=== PATIENT | male | born 1975 | race Caucasian/White ===

== ENCOUNTER 2017-10-08 09:00 | Observation (INO) | payer BC ==
[2017-10-08 09:15] LABS: Urine Appearance CLEAR; Urine Bilirubin NEGATIVE (NEG); Urine Blood NEGATIVE (NEG); Urine Color YELLOW; Urine Glucose NEGATIVE (NEG); Urine Protein NEGATIVE (NEG); Urine Specific Gravity 1.015 (1.005-1.030); Urine Urobilinogen 0.2 mg/dL (0.2-1.0)
[2017-10-08 09:18] LABS: Absolute Monocytes 0.4 K/uL (0.1-1.3); Absolute Neutrophil 3.7 K/uL (1.8-8.0); Basophils % 0.8 % (0-1.3); Eosinophils % 2.9 % (0-4.4); Hematocrit 49.9 % (39.6-49.0); Lymphocytes % 19.4 % (15.3-44.8); MCH 30.7 pg (27.0-35.0); MCV 91.3 fL (80-100); MPV 8.7 fL (7.6-11.3); RBC Red Blood Cell Count 5.46 M/uL (4.33-5.43)
[2017-10-08 09:23] LABS: Protime INR 0.92
[2017-10-08 09:30] LABS: Bicarbonate 30 mEq/L (21-31); Glucose Level 102 mg/dL (65-120); Potassium 4.3 mEq/L (3.6-5.0); Sodium Level 140 mEq/L (135-145)
[2017-10-08 09:31] LABS: BUN Blood Urea Nitrogen 11 mg/dL (6-20)
[2017-10-08 09:32] LABS: Urine Microscopic Reflex NO UMIC
[2017-10-08] MEDS ORDERED: GENTAMICIN 80 MG/100 ML BAG 80 MG/100 ML BAG IV ONE (09:45)
[2017-10-08] MEDS ORDERED: Ringers Lactate 1,000 ML IV ONE (09:45)
[2017-10-08] MEDS ORDERED: NA CIT/CITRIC AC 30 ML ORAL UDC ONE (10:14)
[2017-10-08] MEDS ORDERED: MIDAZOLAM HCL 2 MG/2 ML INJ ONE (10:32)
[2017-10-08] MEDS ORDERED: LIDOCAINE 2% MPF 5 ML VIAL ONE (10:32)
[2017-10-08] MEDS ORDERED: FENTANYL CITR 100 MCG/2 ML ONE (10:32)
[2017-10-08] MEDS ORDERED: ONDANSETRON 4 MG/2 ML VIAL ONE ×4 (10:32→15:56)
[2017-10-08] MEDS ORDERED: PROPOFOL 200 MG/20 ML VIAL IV ONE (10:32)
--- NOTE | 2017-10-08 11:00 | RAD REPORT ---
EXAM DESCRIPTION: RAD - Abdomen 1 View (KUB) - 10/08/2017 10:53 am CLINICAL HISTORY: Preop examination, nephrolithiasis COMPARISON: KUB September 16 FINDINGS: Bilateral upper pole renal calculi show no change in size, number or morphology. There is a punctate calcification over the lower pole right kidney is also unchanged. No obstruction, free air or pneumatosis. Bowel gas pattern is nonspecific. No significant bony findings IMPRESSION: Bilateral nephrolithiasis pattern as detailed. No clear change from the September 16 stud y.
[2017-10-08] MEDS: MEPERIDINE HCL 50 MG/ML AMP ONE ×4 (12:27→12:48)
[2017-10-08] MEDS ORDERED: MEPERIDINE HCL 50 MG/ML AMP ONE (13:02)
--- NOTE | 2017-10-08 14:05 | EKG ---
Test Date: 2017-10-08 Test Time: 08:53:40 Physicist Astrophysics: TELLO MEASUREMENT RESULTS: Intervals: Rate: 72 ID: [id number] QRSD: 80 QT: 388 QTc: 424 [place]: P: 27 ID: [id number] QRS: -14 T: -13 INTERPRETIVE STATEMENTS: Normal sinus rhythm Moderate voltage criteria for LVH, may be normal variant Borderline ECG No previous ECG available for comparison Electronically Signed On 10-08-17 14:03:52 CDT by Aden Calvo
[2017-10-08] MEDS ORDERED: TRAMADOL HCL 50 MG TAB ONE (14:28)
[2017-10-08] MEDS ORDERED: KETOROLAC 30 MG/ML INJ ONE (15:14)
[2017-10-08] MEDS ORDERED: MORPHINE 5 MG/ML VIAL IV ONE (15:39)
[2017-10-08] MEDS ORDERED: ONDANSETRON 4 MG/2 ML VIAL IV ONE (15:39)
[2017-10-08] MEDS ORDERED: MORPHINE 10 MG/ML VIAL ONE ×2 (15:55→17:05)
[2017-10-08] MEDS ORDERED: MORPHINE 10 MG/ML VIAL IV ONE (16:00)
--- NOTE | 2017-10-08 17:48 | P.HP ---
Certification for Inpatient Patient admitted to: Observation With expected LOS: <2 Midnights Patient will require the following post-hospital care: None Practitioner: I am a practitioner with admitting privileges, knowledge of patient current condition, hospital course, and medical plan of care. Services: Services provided to patient in accordance with Admission requirements found in Title 42 Section 412.3 of the Code of Federal Regulations Patient History Date of Service: 10/08/17 Primary Care Provider: None; Urology-Dr. Hernández Reason for admission: Intractable pain status post lithotripsy History of Present Illness: 42-year-old male direct admitted due to intractable pain after lithotripsy. Patient has a history of nephrolithiasis. Patient had evaluation as an outpatient by urology. Urology recommended lithotripsy. Lithotripsy was done today. Post procedure the patient had increasing pain. The patient required multiple doses of pain medication including morphine, tramadol. Pain persisted. I was asked to evaluate the patient for observation. Patient reports a history of nephrolithiasis. He has not had any procedures in the past for this. Patient reports a history of GERD. Patient denies history of chronic pain. He has multiple allergies including hydrocodone , Tylenol. When I evaluated the patient in recovery, patient reported pain to the left flank. Patient had some mild nausea. Patient did not appear in any significant respiratory distress. Allergies hydrocodone Allergy (Verified 10/08/17 08:38) Nausea/Vomiting acetaminophen Adverse Reaction (Verified 10/08/17 09:05) unknown amoxicillin Adverse Reaction (Verified 10/08/17 09:05) hallucinations,psychosis caffeine Adverse Reaction (Verified 10/08/17 09:05) migraine erythromycin base Adverse Reaction (Verified 10/08/17 09:05) hallucination, psychosis Home medications list reviewed: Yes Home Medications: Ibuprofen 1,000 mg PO PRN PRN 10/08/17 - Past Medical/Surgical History Diabetic: No -: Nephrolithiasis -: GERD Past Surgical History: Reviewed- Non-Contributory Psychosocial/ Personal History: The patient lives at home - Family History Family History: Reviewed- Non-Contributory - Social History Smoking Status: Never smoker Alcohol use: No CD- Drugs: No Caffeine use: No Place of Residence: Home Review of Systems General: As per HPI Eyes: Unremarkable ENT: Unremarkable Respiratory: Unremarkable Cardiovascular: Unremarkable Gastrointestinal: Nausea, Abdominal Pain, As per HPI Genitourinary: Unremarkable Musculoskeletal: As per HPI Integumentary: Unremarkable Neurological: Unremarkable Lymphatics: Unremarkable Physical Examination - Vital Signs Temperature: 97.6 F Blood Pressure: 95/55 Pulse: 69 Respirations: 16 - Physical Exam General: Alert, In no apparent distress, Oriented x3, Cooperative HEENT: Atraumatic, Normocephalic, PERRLA, Mucous membr. moist/pink Neck: Supple, No Thyromegaly Respiratory: Clear to auscultation bilaterally, Normal air movement Cardiovascular: Normal pulses, Regular rate/rhythm Gastrointestinal: Normal bowel sounds, Soft and benign, Non-distended, Tenderness (Patient tenderness to the left flank) Musculoskeletal: No erythema, No tenderness, No warmth Integumentary: No erythema, No warmth, No cyanosis Neurological: Normal speech, Normal strength at 5/5 x4 extr, Normal tone, Normal affect Lymphatics: No axilla or inguinal lymphadenopathy - Studies Laboratory Data (last 24 hrs) 10/08/17 08:40: Sodium 140, Potassium 4.3, BUN 11, Creatinine 0.83, Glucose 102 10/08/17 08:40: PT 10.9, INR 0.92, APTT 26.7 10/08/17 08:40: WBC 5.3, Hgb 16.8, Hct 49.9 H, Plt Count 254 Assessment and Plan - Problems (Diagnosis) (1) Intractable pain Current Visit: Yes Status: Acute Plan: Patient with intractable left flank pain after lithotripsy. Patient has required multiple doses of pain medication including morphine, tramadol. Patient will be admitted overnight for observation. Will transition off morphine to fentanyl for severe pain. Will provide medication-tramadol and ibuprofen. Will start IV fluids. Will provide medication for nausea. Will discuss case further with urology. Lab unremarkable from this morning. KUB is pending. Anticipate discharge tomorrow. Patient will need to strain his urine. (2) Nephrolithiasis Current Visit: Yes Status: Acute Plan: Patient status post lithotripsy. Will monitor closely. Will continue with above plan of care (3) H/O lithotripsy Current Visit: Yes Status: Acute Plan: Lithotripsy done this afternoon (4) Nausea & vomiting Current Visit: Yes Status: Acute Plan: Will provide medication as needed Qualifiers: Vomiting type: unspecified Vomiting Intractability: unspecified Qualified Code(s): R11.2 - Nausea with vomiting, unspecified Discharge Plan: Home - Advance Directives Does patient have a Living Will: No Does patient have a Durable POA for Healthcare: No - Code Status/Comfort Care Code Status Assessed: Yes Time Spent Managing Pts Care (In Minutes): 55
[2017-10-08] MEDS ORDERED: NA CHLORIDE 0.9% 1,000 ML IV SCH (18:16)
[2017-10-08] MEDS ORDERED: FENTANYL CITR 100 MCG/2 ML IV PRN (18:16)
[2017-10-08] MEDS ORDERED: TRAMADOL HCL 50 MG TAB PO PRN (18:16)
[2017-10-08] MEDS ORDERED: IBUPROFEN 400 MG TAB PO PRN (18:16)
[2017-10-08] MEDS ORDERED: ONDANSETRON 4 MG/2 ML VIAL IV PRN (18:16)
[2017-10-08] MEDS: PROMETHAZINE 25 MG/ML VIAL IV PRN ×2 (18:59→23:09)
[2017-10-08] MEDS ORDERED: MORPHINE 5 MG/ML VIAL IV PRN ×2 (19:08→19:11)
[2017-10-08] MEDS ORDERED: D5 NS IV SCH ×2 (20:00)
[2017-10-08] MEDS ORDERED: POTASSIUM CL IV SCH ×2 (20:00)
[2017-10-08 20:08] LABS: Urine Appearance CLEAR; Urine Bilirubin NEGATIVE (NEG); Urine Blood 3+ (NEG); Urine Color YELLOW; Urine Glucose NEGATIVE (NEG); Urine Protein 1+ (NEG); Urine Urobilinogen 0.2 mg/dL (0.2-1.0); Urine pH 6.5 (5.0-7.0)
[2017-10-08 20:13] LABS: Barbiturates NEGATIVE; Benzodiazepines POSITIVE; Cocaine NEGATIVE; METHAMPHETAM NEGATIVE; Opiates POSITIVE; Phencyclidine NEGATIVE; THC Cannibis NEGATIVE
--- NOTE | 2017-10-08 20:17 | RAD REPORT ---
EXAM DESCRIPTION: RAD - Abdomen 1 View (KUB) - 10/08/2017 7:46 pm CLINICAL HISTORY: Abdomen pain. FINDINGS: The bowel gas pattern is unremarkable. Since the October 08 exam a 3 millimeter calculus within the midpole of the right kidney is no longer seen. A 3 millimeter calcification within the midpole of the left kidney is no longer visualized. No other change is noted. Calcification along the course of the ureters is not visualized
[2017-10-08 20:27] LABS: Urine Microscopic Reflex ORDER UMIC
[2017-10-08 20:48] LABS: Urine RBC >50 /HPF (NONE SEEN)
[2017-10-08 20:49] LABS: Urine Bacteria <20 /HPF (NONE SEEN); Urine Culture Reflex Order NOT NEEDED; Urine Mucus 1+ /HPF (NONE SEEN)
[2017-10-08] MEDS: D5.45NS W/KCL 20MEQ 1,000 ML IV SCH (20:55)
[2017-10-09] VITALS: BMI 28.8
[2017-10-09 04:16] LABS: Absolute Lymphocytes (CBC) 0.6 K/uL (0.7-4.9); Absolute Monocytes 0.8 K/uL (0.1-1.3); Basophils % 0.2 % (0-1.3); Eosinophils % 0.2 % (0-4.4); Hematocrit 41.6 % (39.6-49.0); Lymphocytes % 5.8 % (15.3-44.8); MCH 30.7 pg (27.0-35.0); MCV 91.1 fL (80-100); MPV 8.7 fL (7.6-11.3); Monocytes % 7.7 % (3.3-12.3); RBC Red Blood Cell Count 4.56 M/uL (4.33-5.43)
[2017-10-09 04:28] LABS: Potassium 4.3 mEq/L (3.6-5.0)
[2017-10-09 05:14] LABS: Blood Morphology Comment NOT SEEN (NOT SEEN); Platelet Estimate ADEQ; Urine White Blood Cell Casts OK
[2017-10-09] MEDS ORDERED: PANTOPRAZOLE 40MG TABLET PO SCH (07:30)
[2017-10-09 07:56] VITALS: O2SAT 97
[2017-10-09] MEDS ORDERED: INFLUENZA VACCINE (for 3y+) 0.5 ML DOSE IMVAC ONE (08:00)
[2017-10-09 08:08] VITALS: BP 127/83; TEMP 98.6
[2017-10-09] MEDS ORDERED: PANTOPRAZOLE 40 MG INJ IV SCH (09:00)
[2017-10-09] MEDS ORDERED: SODIUM CHLORIDE 0.9% 10ML INJ IV SCH (09:00)
[2017-10-09] MEDS: D5.45NS W/KCL 20MEQ 1,000 ML IV SCH (09:20)
--- NOTE | 2017-10-09 16:07 | P.DS ---
Admission Date: 10/08/17 Discharge Date: 10/09/17 Primary Care Provider: None; Urology-Dr. Hernández Disposition: ROUTINE DISCHARGE Discharge Condition: GOOD Reason for Admission: Intractable pain status post lithotripsy Consultations: Urology - Problems (1) Intractable pain Onset Date: 10/09/17 Status: Acute (2) Nephrolithiasis Onset Date: 10/09/17 Status: Acute (3) H/O lithotripsy Status: Acute (4) Nausea & vomiting Onset Date: 10/09/17 Status: Acute Qualifiers: Vomiting type: unspecified Vomiting Intractability: unspecified Qualified Code(s): R11.2 - Nausea with vomiting, unspecified (5) GERD (gastroesophageal reflux disease) Status: Suspected Qualifiers: Esophagitis presence: esophagitis presence not specified Qualified Code(s) : K21.9 - Gastro-esophageal reflux disease without esophagitis Brief History of Present Illness: 42-year-old male direct admitted due to intractable pain after lithotripsy. Patient has a history of nephrolithiasis. Patient had evaluation as an outpatient by urology. Urology recommended lithotripsy. Lithotripsy was done today. Post procedure the patient had increasing pain. The patient required multiple doses of pain medication including morphine, tramadol. Pain persisted. I was asked to evaluate the patient for observation. Patient reports a history of nephrolithiasis. He has not had any procedures in the past for this. Patient reports a history of GERD. Patient denies history of chronic pain. He has multiple allergies including hydrocodone , Tylenol. When I evaluated the patient in recovery, patient reported pain to the left flank. Patient had some mild nausea. Patient did not appear in any significant respiratory distress. Hospital Course: The patient did well overnight. His pain resolved. Pain likely related to his lithotripsy. Repeat x-ray showed resolution and no stones bilaterally. Patient evaluated by urology. At discharge patient will continue with Flomax 0.4 mg daily. Patient will be given a limited supply of pain medication- Tylenol #3 1 pill twice daily as needed for pain. Recommendation is the patient follow up with urology in 1 week to follow up this hospitalization. Patient will need to increase his water intake. Patient has history of GERD. He has not been taking any medication. At discharge recommendation is to start Protonix 40 mg 1 pill once daily. Patient may follow up with GI as an outpatient to further address. Vital Signs/Physical Exam: Temp Pulse Resp BP Pulse Ox 98.6 F 71 16 127/83 97 10/09/17 08:00 10/09/17 08:00 10/09/17 08:00 10/09/17 08:00 10/09/17 08:00 General: Alert, In no apparent distress, Oriented x3, Cooperative HEENT: Atraumatic, Mucous membr. moist/pink Neck: Supple, No Thyromegaly Respiratory: Clear to auscultation bilaterally, Normal air movement Cardiovascular: Normal pulses, Regular rate/rhythm Gastrointestinal: Normal bowel sounds, Soft and benign, Non-distended, No tenderness, No masses, No rebound, No guarding Musculoskeletal: No erythema, No tenderness, No warmth Integumentary: No tenderness/swelling, No erythema, No warmth, No cyanosis Neurological: Normal speech, Normal strength at 5/5 x4 extr, Normal tone, Normal affect Laboratory Data at Discharge: WBC 10.4 K/uL (4.3-10.9) D 10/09/17 03:30 Hgb 14.0 g/dL (13.6-17.9) D 10/09/17 03:30 Hct 41.6 % (39.6-49.0) D 10/09/17 03:30 Plt Count 200 K/uL (152-406) D 10/09/17 03:30 PT 10.9 SECONDS (9.5-12.5) 10/08/17 08:40 INR 0.92 10/08/17 08:40 APTT 26.7 SECONDS (24.3-36.9) 10/08/17 08:40 Sodium 136 mEq/L (135-145) 10/09/17 03:30 Potassium 4.3 mEq/L (3.6-5.0) 10/09/17 03:30 BUN 11 mg/dL (6-20) 10/09/17 03:30 Creatinine 1.20 mg/dL (0.61-1.24) 10/09/17 03:30 Glucose 132 mg/dL (65-120) H 10/09/17 03:30 Magnesium 2.0 mg/dL (1.8-2.5) 10/09/17 03:30 Home Medications: Codeine/APAP [Tylenol W/Codeine #3 tab] 1 tab PO BID PRN #10 tab 10/09/17 Pantoprazole [Protonix Tab] 40 mg PO DAILY #30 tab 10/09/17 Tamsulosin [Flomax] 0.4 mg PO BEDTIME #30 cap 10/09/17 New Medications: Codeine/APAP [Tylenol W/Codeine #3 tab] 1 tab PO BID PRN #10 tab PRN Reason: Pain Pantoprazole [Protonix Tab] 40 mg PO DAILY #30 tab Tamsulosin [Flomax] 0.4 mg PO BEDTIME #30 cap Patient Discharge Instructions: 1. Patient is status post lithotripsy. Patient with nephrolithiasis. Repeat x-ray shows resolution. Patient was admitted due to intractable pain. This has resolved. Patient evaluated by urology. At discharge patient will continue with Flomax 0.4 mg daily. Patient will be given a limited supply of pain medication-Tylenol #3 1 pill twice daily as needed for pain. Recommendation is the patient follow up with urology in 1 week to follow up this hospitalization. 2. Patient has history of GERD. Will recommend to start Protonix 40 mg 1 pill once daily. Patient may follow up with GI as an outpatient to further address. Diet: AHA Activity: Ad michael Followup: OOTOOT [Primary Care Provider] - (call to schedule appointment) Time spent managing pt's care (in minutes): 55
== END 2017-10-09 11:08 | disposition home or self-care (01) ==
LOC: OR 09:00 → 4TH 16:23 → UNDOADMOB 17:23 → 4TH 17:23
PROVIDERS: ADMIT Family Medicine; ATTEND Family Medicine
PROC: 0TF4XZZ Fragmentation in Left Kidney Pelvis, External Approach (ICD-10-PCS; principal; 2017-10-08 10:00)
DX: R10.9 Unspecified abdominal pain (principal); N20.0 Calculus of kidney; R11.2 Nausea with vomiting, unspecified; Z88.0 Allergy status to penicillin
CPT/HCPCS: 36415; 50590; 74018; 80048; 80307; 81003; 81015; 83735; 85025; 85610; 85730; 87086; 87088; 93005; C9113; G0378; J1580; J2175; J2250; J2270; J2405; J2550; J3010; J7030

== ENCOUNTER 2020-10-28 09:07 | Emergency (ER) | payer BC ==
--- OUTSIDE RECORDS SUMMARY | 2020-10-28 09:10 | XMS REPORT | Continuity of Care Document ---
:1975 Author Organization [facility] t Address [address] [place] [address] Care Team Providers Name Role Phone Vannesa ESPOSITO Attending Clinician IZABELA Attending Clinician Unavailable FERMÍN Attending Clinician Unavailable Chinmay KELLOGG Attending Clinician Doctor Unassigned, Name Attending Clinician Unavailable FERMÍN Admitting Clinician Unavailable Problems Condition Condition Condition Status Onset Resolution Last Treating Co mments Source Name Details Category Date Date Treatment Clinician Date COVID-19 Covid-19 Problem Active [facility]: [facility] 00 Group Allergic Allergic Problem Active [facility] rhinitis [facility] Asthma Asthma Problem Active [facility] Vertigo Vertigo Problem Active [facility] Allergies, Adverse Reactions, Alerts Allergy Allergy Status Severity Reaction(s) Onset Inactive Treating Comm ents Source Name Type Date Date Clinician Acetamin Allergy Active Moderate Vomiting [facility] ophen to [facility] Amoxicil Allergy Active Moderate Other [facility] aure to to severe [facility] Codeine Allergy Active Moderate Vomiting Man gor to da [facility] Erythrom Allergy Active Moderate Other [facility] ycin to to severe da [facility] Social History Smoking Status Start Date Stop Date Source Never Smoker [facility] Medications Ordered Filled Start Stop Current Ordering Indication Dosage Frequency Signature Comments Components Source Medication Medication Date Date Medication? Clinician (SIG) Name Name albuterol albuterol No 2puff(s Q4H albuterol [facility] sulfate HFA sulfate HFA ) sulfate da 90 90 HFA 90 Medical mcg/actuati mcg/actuati mcg/actuat Group on aerosol on aerosol ion inhaler inhaler aerosol Inhale 2 Inhale 2 inhaler puffs every puffs every Inhale 2 4 hours by 4 hours by puffs inhalation inhalation every 4 route as route as hours by needed. needed. inhalation route as needed. Dulera 100 Dulera 100 No Dulera 100 [facility] mcg-5 mcg-5 mcg-5 da mcg/actuati mcg/actuati mcg/actuat Medical on HFA on HFA ion HFA Group aerosol aerosol aerosol inhaler inhaler inhaler INHALE 2 INHALE 2 INHALE 2 PUFF BY PUFF BY PUFF BY INHALATION INHALATION INHALATION ROUTE 2 ROUTE 2 ROUTE 2 TIMES EVERY TIMES EVERY TIMES DAY IN THE DAY IN THE EVERY DAY MORNING AND MORNING AND IN THE EVENING EVENING MORNING AND EVENING losartan losartan No losartan [facility] 100 mg 100 mg 100 mg da tablet TK 1 tablet TK 1 tablet TK Medical T PO QD T PO QD 1 T PO QD Grou p Vital Signs Vital Name Observation Time Observation Value Comments Source BP Diastolic 2020-10-14 00:00:00 72 mm[Hg] [facility] Height 2020-10-14 00:00:00 68 [in_i] [facility] BMI (Body Mass 2020-10-14 00:00:00 30.5 kg/m2 [facility] Medical Index) Group BP Systolic 2020-10-14 00:00:00 102 mm[Hg] [facility] Body Weight 2020-10-14 00:00:00 3205 [oz_av] [facility] BP Diastolic 2020-10-03 00:00:00 84 mm[Hg] [facility] Height 2020-10-03 00:00:00 68 [in_i] [facility] BMI (Body Mass 2020-10-03 00:00:00 31.4 kg/m2 [facility] Medical Index) Group BP Systolic 2020-10-03 00:00:00 111 mm[Hg] [facility] Body Weight 2020-10-03 00:00:00 3303 [oz_av] [facility] Procedures This patient has no known procedures. Plan of Care Planned Activity Planned Date Details Comments Source Diagnostic Test 2020-10-14 rapid SARS CoV + [facility] Pending 00:00:00 SARS CoV 2 Ag, QL Group IA, respiratory specimen [code = rapid SARS CoV + SARS CoV 2 Ag, QL IA, respiratory specimen] Instructions [facility] Encounters Start End Encounter Admission Attending Care Care Encounter Source Date/Time Date/Time Type Type Clinicians Facility Department ID 2020-10-14 2020-10-14 Ana [facility] [place] - [id number] M [facility] 00:00:00 00:00:00 Argentina Hernandez [facility] Medical BEHAVIORAL HEALTH CASE MANAGER: [address] [facility] [address], [place] [address] , Ph. 2020-10-03 2020-10-03 Ana [facility] [place] - [id number] M at[facility] 00:00:00 00:00:00 Matthew Ellis Medical BEHAVIORAL HEALTH CASE MANAGER: [address] [facility] [address], [place] [address] , Ph. 2020-05-02 2020-05-02 [facility] [id number] 08:10:51 23:59:00 Encounter [facility] [id number] [facility] [id number] 2019-10-29 2019-10-29 Outpatient [facility] [id number] [place] 00:00:00 00:00:00 FOUZIA [address] 2019-10-20 2019-10-20 Outpatient [place] [id number] [place] 00:00:00 00:00:00 [place] [address] 2019-10-06 2019-10-06 [facility] [id number] [place] 00:00:00 00:00:00 [place] [address] 2019-10-06 2019-10-06 Outpatient [facility] [id number] [place] 00:00:00 00:00:00 FOUZIA [address] 2019-10-06 2019-10-06 Outpatient IZABELA, [facility] [id number] [place] 00:00:00 00:00:00 FOUZIA [address] 2019-10-06 2019-10-06 Outpatient FERMÍN, [facility] [id number] [place] 00:00:00 00:00:00 [place]ER[place] [address] 2019-09-23 2019-09-23 Outpatient FERMÍN, [facility] [id number] [place] 00:00:00 00:00:00 EVERETT [address] 2019-09-17 2019-09-17 Telephone [facility] [id number] 00:00:00 00:00:00 [facility] [id number] [facility] [id number] Primary & 204 Specialty Care 2019-09-17 2019-09-17 Orders Doctor HARLEY [id number] 00:00:00 00:00:00 Only Unassigned, ARTIS [id number] [place] [address] [id number] 2019-09-16 2019-09-16 Telephone [facility] [id number] 00:00:00 00:00:00 [facility] [id number] [place] [id number] [facility] [id number] Primary & 204 Specialty Care 2019-09-08 2019-09-08 Office [facility] [id number] 08:53:25 10:02:16 Visit [facility] [id number] [place] [address] [id number] Primary & 204 Specialty Care Results Test Description Test Time Test Comments Results Result Comments Source SARS-CoV+SARS-CoV-2 (COVID-19) Ag [Presence] in Respiratory 2020-10-03 11:21:51 specimen by Rapid immunoassay Test Item Value Reference Range Interpretation Comme nts SARS-CoV - 2 (test code = SARS-CoV - 2) [facility] Ag [Presence] in Respiratory specimen by Rapid [id number] 11:21:51 Test Item Value Reference Range Interpretation Comments SARS-CoV - 2 (test code = SARS-CoV - positive 2) [facility]
--- NOTE | 2020-10-28 10:03 | RAD REPORT ---
EXAM DESCRIPTION: CT - Chest For Pe Angio - 10/28/2020 9:52 am CLINICAL HISTORY: Cough;Dyspnea , recent COVID pneumonia with continued shortness of breath COMPARISON: No relevant comparisons TECHNIQUE: Dynamically enhanced 3 mm thick images of the chest were obtained during administration o f approximately 150mL Isovue 370 IV contrast. Coronal and oblique MIP reconstruction images were gene rated and reviewed. Exam utilizes a protocol to evaluate the pulmonary arterial tree. All CT scans are performed using dose optimization technique as appropriate and may include automated exposure control or mA/KV adjustment according to patient size. FINDINGS: No pulmonary emboli are identified. Respiratory motion limits the far peripheral branch as sessment in each lung base. Pulmonary emboli are not suspected. The aorta as imaged shows no acute or suspicious finding. No pericardial thickening or effusion. Interstitial markings are prominent throughout all lung kraft. There are several patchy areas of air space opacification present primarily in a peripheral distribution. This is a well described COVID pn eumonia pattern. This is mild bordering on moderate in severity. No pleural effusion or pleural thick ening. No mediastinal or hilar suspicious masses. No chest wall masses or abnormal axillary lymphadenopathy. IMPRESSION: No pulmonary emboli identified. Mild, bordering on moderate, severity remnant COVID-19 pneumonia findings in the lung parenchyma.
--- NOTE | 2020-10-28 10:04 | RAD REPORT ---
EXAM DESCRIPTION: CT - Head Brain Wo Cont - 10/28/2020 9:55 am CLINICAL HISTORY: HEADACHE COMPARISON: Sinus Wo Cont dated 09/30/2020 TECHNIQUE: Axial 5 mm thick images of the head were obtained without IV contrast. All CT scans are performed using dose optimization technique as appropriate and may include automated exposure control or mA/KV adjustment according to patient size. FINDINGS: No intracranial hemorrhage, mass, edema or shift of mid-line structures. No acute infarcti on changes seen. No abnormal extra-axial fluid collections. Ventricles are normal. Mastoid air cells and visualized portions of the paranasal sinuses are clear. No acute bony findings. IMPRESSION: Negative non-contrast CT head examination.
[2020-10-28 10:07] LABS: Absolute Lymphocytes (CBC) 0.8 K/uL (0.7-4.9); Basophils % 1.1 % (0-1.3); Hematocrit 44.3 % (39.6-49.0); Lymphocytes % 14.7 % (15.3-44.8); MPV 8.4 fL (7.6-11.3); RBC Red Blood Cell Count 4.81 M/uL (4.33-5.43)
[2020-10-28 10:26] LABS: ALT/SGPT 62 U/L (12-78); AST/SGOT 27 U/L (15-37); Albumin 3.5 g/dL (3.4-5.0); Alkaline Phosphatase 78 U/L (45-117); BUN Blood Urea Nitrogen 15 mg/dL (7-18); Bicarbonate 27 mmol/L (21-32); Bilirubin Direct 0.1 mg/dL (0-0.2); Bilirubin Total 0.6 mg/dL (0.2-1.0); C-Reactive Protein 4.56 mg/L (<3.00); Ferritin 210.2 ng/mL (26-388); Glucose Level 92 mg/dL (74-106); Lipase 68 U/L (73-393); Potassium 4.6 mmol/L (3.5-5.1); Protein, Total 7.4 g/dL (6.4-8.2); Sodium Level 140 mmol/L (136-145); Troponin (Emerg Dept Use Only) < 0.02 ng/mL (0.0-0.045)
[2020-10-28 10:36] LABS: Protime INR 0.98
--- NOTE | 2020-10-28 11:44 | EDPHYS ---
Physician Documentation [facility] Name: Kelton Webster Age: 45 yrs Sex: Male : 1975 Arrival Date: 10/28/2020 Time: 09:10 Bed 5 Private MD: BRANDYN Physician Abhishek Flores HPI: 10/28 09:35 This 45 yrs old Male presents to ER via Ambulatory with complaints of kb Coughing up blood. 09:35 The patient has shortness of breath with light activity. Onset: The symptoms/episode kb began/occurred 2 day(s) ago. Duration: The symptoms are continuous. The patient's shortness of breath is aggravated by coughing, exertion, light activity, supine position. Associated signs and symptoms: Pertinent positives: non-productive cough. Severity of symptoms: At their worst the symptoms were moderate in the emergency department the symptoms are unchanged. The patient has not experienced similar symptoms in the past. The patient has been recently seen by a physician:. Pt reports he was diagnosed with COVID on 10/10/20. States he has had shortness of breath, worse on exertion, since then. Has been to [place] [facility] and was told it was covid and the symptoms could last months, but no testing was done. Pt went to meeting specialist today and was sent to the ER for labored breathing on exertion. Pt states he has also had a headache for a while. States the headache gets worse with the cough. Headache started prior to COVID, pt was seen by neuro for this and recommended to have a MRI, but pt doesn't have a ride to [place] to have it done at this time. . Historical: - Allergies: 09:25 Erythromycin; ss 09:25 Amoxicillin; ss 09:25 caffeine; ss - Home Meds: 09:25 losartan 100 mg oral tab 1 tab once daily [Active]; ss - PMHx: 09:25 Hypertension; Kidney stones; ss - PSHx: 09:25 Lithotripsy; Hernia repair; ss - Immunization history:: Adult Immunizations unknown. - Social history:: Smoking status: Patient denies any tobacco usage or history of. ROS: 09:33 Constitutional: Negative for fever, chills, and weight loss, Cardiovascular: Negative kb for chest pain, palpitations, and edema, Abdomen/GI: Negative for abdominal pain, nausea, vomiting, diarrhea, and constipation, MS/Extremity: Negative for injury and deformity, Skin: Negative for injury, rash, and discoloration. 09:33 Respiratory: Positive for cough, dyspnea on exertion, hemoptysis, orthopnea, shortness of breath. 09:33 Neuro: Positive for headache. Exam: 09:34 Constitutional: This is a well developed, well nourished patient who is awake, alert, kb and in no acute distress. Head/Face: Normocephalic, atraumatic. Cardiovascular: Regular rate and rhythm with a normal S1 and S2. No gallops, murmurs, or rubs. No pulse deficits. Abdomen/GI: Soft, non-tender. No distention Skin: Warm, dry with normal turgor. Normal color. MS/ Extremity: Pulses equal, no cyanosis. Neurovascular intact. Full, normal range of motion. Neuro: Awake and alert, GCS 15, oriented to person, place, time, and situation. Moves all extremities. Normal gait. 09:34 Respiratory: mild respiratory distress is noted, Respirations: labored breathing, that is mild, Breath sounds: are clear throughout. 09:43 ECG was reviewed by the Attending Physician. kb Vital Signs: 09:18 BP 119 / 84; Pulse 92; Resp 23; Temp 98.1(O); Pulse Ox 100% on R/A; Weight 92.08 kg; ss Height 5 ft. 8 in. (172.72 cm); Pain 0/10; 09:30 BP 115 / 83; Pulse 77; Resp 22; Pulse Ox 100% ; sv 10:15 BP 117 / 80; Pulse 76; Resp 18; Pulse Ox 100% on R/A; sv 11:39 BP 123 / 88; Pulse 78; Resp 16; Pulse Ox 98% ; sv 09:18 Body Mass Index 30.87 (92.08 kg, 172.72 cm) ss MDM: 09:11 Patient medically screened. kb 09:34 Data reviewed: vital signs, nurses notes. Data interpreted: Pulse oximetry: on room air kb is 100 %. Interpretation: normal. 11:44 Counseling: I had a detailed discussion with the patient and/or guardian regarding: the kb historical points, exam findings, and any diagnostic results supporting the discharge/admit diagnosis, lab results, radiology results, the need for outpatient follow up, a family practitioner, to return to the emergency department if symptoms worsen or persist or if there are any questions or concerns that arise at home. 10/28 09:20 Order name: Blood Culture Adult (2) kb 10/28 09:20 Order name: BMP kb 10/28 09:20 Order name: C-Reactive Protein kb 10/28 09:20 Order name: CBC with Diff kb 10/28 09:20 Order name: Ferritin kb 10/28 09:20 Order name: Lactate; Complete Time: 10:24 kb 10/28 09:20 Order name: LFT's; Complete Time: 10:29 kb 10/28 09:20 Order name: Lipase; Complete Time: 10:29 kb 10/28 09:20 Order name: Procalcitonin; Complete Time: 11:03 kb 10/28 09:20 Order name: PT-INR; Complete Time: 11:03 kb 10/28 09:20 Order name: Ptt, Activated; Complete Time: 11:03 kb 10/28 09:20 Order name: Troponin (emerg Dept Use Only); Complete Time: 10:29 kb 10/28 09:20 Order name: Blood Culture EDMS 10/28 09:20 Order name: Basic Metabolic Panel; Complete Time: 10:29 EDMS 10/28 09:20 Order name: EKG; Complete Time: 09:20 kb 10/28 09:20 Order name: Cardiac monitoring; Complete Time: 09:44 kb 10/28 09:20 Order name: EKG - Nurse/Tech; Complete Time: 09:45 kb 10/28 09:20 Order name: IV Start; Complete Time: 09:45 kb 10/28 09:20 Order name: Labs collected and sent; Complete Time: 09:45 kb 10/28 09:20 Order name: O2 Per Protocol; Complete Time: 09:45 kb 10/28 09:20 Order name: O2 Sat Monitoring; Complete Time: 09:45 kb 10/28 09:20 Order name: CT Chest For PE Angio; Complete Time: 10:07 kb 10/28 09:20 Order name: CT Head Brain wo Cont; Complete Time: 10:07 kb 10/28 09:20 Order name: C-Reactive Protein; Complete Time: 10:29 EDMS 10/28 09:20 Order name: CBC with Automated Diff; Complete Time: 10:19 EDMS 10/28 09:20 Order name: Ferritin; Complete Time: 10:29 EDMS 10/28 09:43 Order name: BNP kb 10/28 09:44 Order name: NT PRO-BNP; Complete Time: 10:31 EDMS EC:43 Rate is 78 beats/min. Rhythm is regular. QRS Guadalupe is Normal. FL interval is normal at kb 154 msec. QRS interval is normal at 72 msec. QT interval is normal at 360 msec. Administered Medications: No medications were administered Disposition: 10/29 07:26 Co-signature as Attending Physician, Abhishek Flores MD I agree with the assessment and erica plan of care. Disposition: 10/28/20 11:44 Discharged to Home. Impression: Dyspnea - s/p covid. - Condition is Stable. - Discharge Instructions: Shortness of Breath, [id number], COVID-19. - Medication Reconciliation Form, Thank You Letter, Antibiotic Education, Prescription Opioid Use form. - Follow up: Private Physician; When: 2 - 3 days; Reason: Recheck today's complaints, Continuance of care, Re-evaluation by your physician. Follow up: Emergency Department; When: As needed; Reason: Worsening of condition. Signatures: Dispatcher [employer] EDRoxanne Hernandez, ROLL CLEANER-C ROLL CLEANER-Abhishek Booth MD MD cha Smirch, Shelby, RN RN ss Corrections: (The following items were deleted from the chart) 10/28 10:16 09:20 Droplet/Contact Precautions ordered. kb sv 11:45 11:44 10/28/2020 11:44 Discharged to Home. Impression: Dyspnea. Condition is Stable. kb Forms are Medication Reconciliation Form, Thank You Letter, Antibiotic Education, Prescription Opioid Use. Follow up: Private Physician; When: 2 - 3 days; Reason: Recheck today's complaints, Continuance of care, Re-evaluation by your physician. Follow up: Emergency Department; When: As needed; Reason: Worsening of condition. kb 12:01 11:45 10/28/2020 11:44 Discharged to Home. Impression: Dyspnea - s/p covid. Condition ss is Stable. Discharge Instructions: Shortness of Breath, [id number], COVID-19. Forms are Medication Reconciliation Form, Thank You Letter, Antibiotic Education, Prescription Opioid Use. Follow up: Private Physician; When: 2 - 3 days; Reason: Recheck today's complaints, Continuance of care, Re-evaluation by your physician. Follow up: Emergency Department; When: As needed; Reason: Worsening of condition. kb
--- NOTE | 2020-10-28 11:44 | ER ---
Nurse's Notes [facility] Name: Kelton Webster Age: 45 yrs Sex: Male : 1975 Arrival Date: 10/28/2020 Time: 09:10 Bed 5 Private MD: Diagnosis: Dyspnea-s/p covid Presentation: 10/28 09:18 Chief complaint: Patient states: "I had covid pneumonia the end of September, but I'm still ss short of breath and I have these coughing fits that just makes my head pound. My ribs hurt. 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 I can't lay down either. I have to sit in a chair to breath.". Coronavirus screen: Client denies travel out of the [place] in the last 14 days. Ebola Screen: Patient denies exposure to infectious person. Patient denies travel to an Ebola-affected area in the 21 days before illness onset. Initial Sepsis Screen: Does the patient meet any 2 criteria? No. Patient's initial sepsis screen is negative. Does the patient have a suspected source of infection? No. Patient's initial sepsis screen is negative. Risk Assessment: Do you want to hurt yourself or someone else? Patient reports no desire to harm self or others. Onset of symptoms was September 2020. 09:18 Method Of Arrival: Ambulatory 09:18 Acuity: DORON 3 ss Historical: - Allergies: 09:25 Erythromycin; ss 09:25 Amoxicillin; ss 09:25 caffeine; ss - Home Meds: 09:25 losartan 100 mg oral tab 1 tab once daily [Active]; ss - PMHx: 09:25 Hypertension; Kidney stones; ss - PSHx: 09:25 Lithotripsy; Hernia repair; ss - Immunization history:: Adult Immunizations unknown. - Social history:: Smoking status: Patient denies any tobacco usage or history of. Screenin:35 Abuse screen: Denies threats or abuse. Denies injuries from another. Nutritional sv screening: No deficits noted. Tuberculosis screening: No symptoms or risk factors identified. Fall Risk None identified. Assessment: 09:35 General: Appears in no apparent distress. uncomfortable, well groomed, well developed, sv Behavior is calm, cooperative, appropriate for age. Pain: Denies pain. Neuro: Level of Consciousness is awake, alert, obeys commands, Oriented to person, place, time, situation, Gait is steady. Respiratory: Airway is patent Respiratory effort is even, unlabored, Respiratory pattern is regular, symmetrical. Respiratory: Reports cough that is productive, with blood. Derm: Skin is intact, Skin is pink, warm \\T\\ dry. 10:30 Reassessment: Patient appears in no apparent distress at this time. No changes from sv previously documented assessment. Patient and/or family updated on plan of care and expected duration. Pain level reassessed. Patient is alert, oriented x 3, equal unlabored respirations, skin warm/dry/pink. 12:00 Reassessment: Patient appears in no apparent distress at this time. Patient and/or sv family updated on plan of care and expected duration. Pain level reassessed. Patient is alert, oriented x 3, equal unlabored respirations, skin warm/dry/pink. Vital Signs: 09:18 BP 119 / 84; Pulse 92; Resp 23; Temp 98.1(O); Pulse Ox 100% on R/A; Weight 92.08 kg; ss Height 5 ft. 8 in. (172.72 cm); Pain 0/10; 09:30 BP 115 / 83; Pulse 77; Resp 22; Pulse Ox 100% ; sv 10:15 BP 117 / 80; Pulse 76; Resp 18; Pulse Ox 100% on R/A; sv 11:39 BP 123 / 88; Pulse 78; Resp 16; Pulse Ox 98% ; sv 09:18 Body Mass Index 30.87 (92.08 kg, 172.72 cm) ED Course: 09:10 Patient arrived in ED. mr 09:11 Roxanne Hendrix FNP-C is PHCP. kb 09:11 Abhishek Flores MD is Attending Physician. kb 09:23 Triage completed. ss 09:25 Arm band placed on right wrist. ss 09:26 Grace Morris, LEWIS is Primary Nurse. sv 09:35 Patient has correct armband on for positive identification. Placed in gown. Bed in low sv position. Call light in reach. safety officer on. Pulse ox on. NIBP on. Door closed. Head of bed elevated. 09:35 EKG done, by ED staff, reviewed by Roxanne OCHOA. sv 09:50 Initial lab(s) drawn, by me, sent to lab. First set of blood cultures drawn by me. mh5 09:52 CT Chest For PE Angio In Process Unspecified. EDMS 09:55 CT Head Brain wo Cont In Process Unspecified. EDMS 09:56 Inserted saline lock: 20 gauge in right forearm, using aseptic technique. Blood mh5 collected. 09:57 NT PRO-BNP Sent. mh5 09:57 BNP Sent. mh5 09:57 CBC with Automated Diff Sent. mh5 09:57 Ferritin Sent. mh5 09:57 Blood Culture Sent. mh5 09:57 Basic Metabolic Panel Sent. mh5 09:57 C-Reactive Protein Sent. mh5 09:59 Blood Culture Adult (2) Sent. mh5 09:59 BMP Sent. mh5 09:59 C-Reactive Protein Sent. mh5 09:59 CBC with Diff Sent. mh5 09:59 Ferritin Sent. mh5 09:59 Lactate Sent. mh5 09:59 LFT's Sent. mh5 09:59 Lipase Sent. mh5 09:59 Procalcitonin Sent. mh5 09:59 PT-INR Sent. mh5 10:00 Ptt, Activated Sent. 5 10:00 Troponin (emerg Dept Use Only) Sent. mh5 12:00 No provider procedures requiring assistance completed. IV discontinued, intact, sv bleeding controlled, No redness/swelling at site. Pressure dressing applied. Administered Medications: No medications were administered Outcome: 11:44 Discharge ordered by . reg 12:00 Discharged to home ambulatory, Instructions gone over by Isatu whiteside 12:00 Condition: stable 12:00 Discharge instructions given to patient, Instructed on discharge instructions, follow up and referral plans. Demonstrated understanding of instructions, follow-up care. 12:01 Patient left the ED. Signatures: Dispatcher [employer] Roxanne Johnson, GABRIELA ESPOSITO-Grace Bonds, RN [employer] Shelby, RN RN ss Martinez, Maria 5
[2020-10-28 15:30] VITALS: TEMP 98.1
[2020-10-28 15:34] VITALS: BP 123/88; O2SAT 98
--- NOTE | 2020-10-31 07:20 | EKG ---
Test Date: 2020-10-28 Test Time: 09:35:02 Vice President Of Software Engineering: SV MEASUREMENT RESULTS: Intervals: Rate: 78 TN: 154 QRSD: 72 QT: 360 QTc: 410 [place]: P: 32 TN: 154 QRS: -10 T: 1 INTERPRETIVE STATEMENTS: Normal sinus rhythm Possible Left atrial enlargement Left ventricular hypertrophy Abnormal ECG Compared to ECG 07/09/2019 12:52:43 Left ventricular hypertrophy now present Electronically Signed On 10-31-20 07:14:57 CDT by Aden Calvo
== END 2020-10-28 12:01 | disposition home or self-care (01) ==
LOC: ER 09:07
DX: R06.00 Dyspnea, unspecified (principal); Z86.16 Personal history of COVID-19; I10 Essential (primary) hypertension; Z88.1 Allergy status to other antibiotic agents; Z88.3 Allergy status to other anti-infective agents; Z87.442 Personal history of urinary calculi; Z91.018 Allergy to other foods
CPT/HCPCS: 93005; 87040 ×2; 85025; 80048; 36415; 85610; 82565; 80076; 83605; 85730; 84484; 82728; 83690; 84145; 83880; 86140; 70450; 71275; 99284; Q9967